=== PATIENT | male | born 1975 | race Caucasian/White ===

== ENCOUNTER 2017-12-08 08:25 | Emergency (ER) | payer MEDICAID ==
[~2017-12-08] VITALS: Ht 170.2 cm; Wt 77.0 kg
[2017-12-08 08:27] VITALS: BP 112/71
[2017-12-08] MEDS ORDERED: METHOCARBAMOL 750 MG TABLET ONE (08:43)
[2017-12-08] MEDS ORDERED: KETOROLAC 30 MG/1 ML ONE (08:43)
[2017-12-08] MEDS ORDERED: METHOCARBAMOL 750 MG TABLET PO ONE (09:00)
[2017-12-08] MEDS ORDERED: KETOROLAC 30 MG/1 ML IM ONE (09:00)
== END 2017-12-08 09:36 | disposition home or self-care (01) ==
LOC: ED 09:06
DX: S29.012A Strain of muscle and tendon of back wall of thorax, initial encounter (principal); X50.9XXA Other and unspecified overexertion or strenuous movements or postures, initial encounter; Y93.89 Activity, other specified; Y92.89 Other specified places as the place of occurrence of the external cause; Y99.8 Other external cause status
CPT/HCPCS: 71101; 96372; 99284; J1885